=== PATIENT | female | born 1975 | race Caucasian/White ===

== ENCOUNTER 2016-07-24 17:46 | Emergency (ER) | payer BC ==
[~2016-07-24] VITALS: Ht 167.6 cm; Wt 72.6 kg
[~2016-07-24 17:46] MED LIST: ADDERALL20 MG PO; ANAPROX DS550 MG PO; ANTIVERT25 MG PO; BACTRIM DS 8001 TA1 PO; BIAXIN500 MG PO; CIPRO250 MG PO; CIPRO500 MG PO; CLARITIN10 MG PO; CORDROL20 MG PO; DIAZEPAM2 MG PO; EPIPEN 2-PAK1 MG/ML MR; FLEXERIL10 MG PO; LISINOPRIL10 M1 PO; LOPRESSOR25 MG PO; MACROBID100 M1 PO; MOTRIN800 MG PO; Motrin,Rufen800 MG PO; Orphenadrine C100 MG PO; PEPCID20 MG PO; PREDNISONE10 MG PO; PROVENTIL0.09 MG/AC IH; PYRIDIUM200 M1 PO; PYRIDIUM200 MG PO; ROBAXIN750 MG PO; SYNTHROID,LEV100 MCG PO; ULTRAM50 MG PO; VICODIN 5/500 505 MG PO; ZOFRAN ODT4 MG SL
[2016-07-24] MEDS ORDERED: PROTONIX40 MG/PACK PO (17:54)
[2016-07-24 18:26] LABS: BASO # 0.1 10*3/uL (0.0-0.1); BASO % 0.9 % (0.0-1.0); EOS # 0.7 10*3/uL (0.0-0.4); EOS % 8.9 % (1.0-4.0); HEMATOCRIT 36.6 % (37.0-47.0); HEMOGLOBIN 12.3 g/dl (12.0-16.0); LYMPH # 2.1 10*3/uL (1.3-4.4); LYMPH % 26.1 % (27.0-41.0); MEAN CELL VOLUME 94.3 fl (81.0-99.0); MEAN CORPUSCULAR HGB 31.7 pg (27.0-31.0); MEAN CORPUSCULAR HGB CONC 33.6 g/dl (33.0-37.0); MEAN PLATELET VOLUME 8.5 fl (9.6-12.3); MONO # 0.7 10*3/uL (0.1-1.0); MONO % 8.5 % (3.0-9.0); NEUT # 4.5 10*3/uL (2.3-7.9); NEUT % 55.4 % (47.0-73.0); PLATELET COUNT AUTOMATED 380 10*3/uL (130-400); RED BLOOD COUNT 3.88 10*6/uL (4.10-5.10); RED CELL DISTRI WIDTH 14.6 % (0-14.5); WHITE BLOOD COUNT 8.2 10*3/uL (4.8-10.8)
[2016-07-24 18:43] LABS: ALBUMIN 3.8 gm/dl (3.1-4.5); ALKALINE PHOSPHATASE 53 U/L (45-117); BILIRUBIN, TOTAL 0.3 mg/dl (0.2-1.0); BUN 12 mg/dl (7-24); CARBON DIOXIDE 24 mmol/L (21-32); CHLORIDE 106 mmol/L (98-107); EST GLOM FILT AFRICAN AMERICAN > 60 ml/min; GLUCOSE 84 mg/dL (65-99); MAGNESIUM 2.1 mg/dL (1.5-2.1); POTASSIUM 3.9 mmol/L (3.5-5.1); SGOT/AST 12 IU/L (3-35); SGPT/ALT 20 U/L (12-78); SODIUM 141 mmol/L (136-145); TOTAL PROTEIN 7.3 gm/dL (6.4-8.2)
[2016-07-24 18:53] LABS: C-REACTIVE PROTEIN < 0.29 MG/DL (0-0.3)
[2016-07-24 20:17] LABS: BILIRUBIN NEGATIVE (NEGATIVE); BLOOD 3+ (NEGATIVE); CLARITY CLEAR (CLEAR); COLOR YELLOW (YELLOW); GLUCOSE NEGATIVE (NEGATIVE); KETONE NEGATIVE (NEGATIVE); LEUKO ESTERASE NEGATIVE (NEGATIVE); NITRITE NEGATIVE (NEGATIVE); PH 6.5 (5.0-9.0); PROTEIN NEGATIVE (NEGATIVE); SPECIFIC GRAVITY <= 1.005 (1.005-1.030); UROBILINOGEN 0.2 E.U./dl (0.2-1.0)
[2016-07-24 20:31] LABS: BACTERIA 1+; URINE REFLEX COMMENT YES (NO)
[2016-07-24] MEDS ORDERED: ZOFRAN ODT4 MG SL (22:46)
[2016-07-24] MEDS ORDERED: BENTYL10 MG PO (22:46)
[2016-07-24] MEDS ORDERED: ULTRAM50 MG PO (22:46)
== END 2016-07-24 23:25 | disposition home or self-care (01) ==
LOC: ED 17:46
PROVIDERS: Emergency Medicine
DX: K80.50 Calculus of bile duct without cholangitis or cholecystitis without obstruction (principal); K29.00 Acute gastritis without bleeding; I10 Essential (primary) hypertension; F17.200 Nicotine dependence, unspecified, uncomplicated; Z88.0 Allergy status to penicillin; Z79.899 Other long term (current) drug therapy

== ENCOUNTER → 2016-07-25 | Outpatient (CLI) | payer BC ==
[~2016-07-25] MED LIST changes: +BENTYL10 MG PO; +PROTONIX40 MG/PACK PO
== END | disposition home or self-care (01) ==
LOC: US 17:43
DX: R10.13 Epigastric pain (principal)

== ENCOUNTER 2016-10-23 09:52 | Emergency (ER) | payer BC ==
[~2016-10-23] VITALS: Ht 167.6 cm; Wt 72.6 kg
[2016-10-23 10:24] LABS: BASO # 0.1 10*3/uL (0.0-0.1); BASO % 0.5 % (0.0-1.0); EOS # 0.3 10*3/uL (0.0-0.4); EOS % 1.4 % (1.0-4.0); HEMATOCRIT 40.5 % (37.0-47.0); HEMOGLOBIN 13.7 g/dl (12.0-16.0); IG # 0.1 10*3/uL (0.0-0.1); LYMPH # 1.7 10*3/uL (1.3-4.4); LYMPH % 8.7 % (27.0-41.0); MEAN CELL VOLUME 95.3 fl (81.0-99.0); MEAN CORPUSCULAR HGB 32.2 pg (27.0-31.0); MEAN CORPUSCULAR HGB CONC 33.8 g/dl (33.0-37.0); MEAN PLATELET VOLUME 8.2 fl (9.6-12.3); MONO # 0.9 10*3/uL (0.1-1.0); MONO % 4.4 % (3.0-9.0); NEUT # 16.8 10*3/uL (2.3-7.9); NEUT % 84.4 % (47.0-73.0); PLATELET COUNT AUTOMATED 497 10*3/uL (130-400); RED BLOOD COUNT 4.25 10*6/uL (4.10-5.10); RED CELL DISTRI WIDTH 12.8 % (0-14.5); WHITE BLOOD COUNT 19.9 10*3/uL (4.8-10.8)
[2016-10-23 10:32] LABS: PROTHROMBIN TIME 11.1 SECONDS (9.0-12.4)
[2016-10-23 10:45] LABS: ALBUMIN 3.9 gm/dl (3.1-4.5); ALKALINE PHOSPHATASE 75 U/L (45-117); BILIRUBIN, TOTAL 0.3 mg/dl (0.2-1.0); BUN 7 mg/dl (7-24); CARBON DIOXIDE 25 mmol/L (21-32); CHLORIDE 105 mmol/L (98-107); EST GLOM FILT AFRICAN AMERICAN > 60 ml/min; MAGNESIUM 1.9 mg/dL (1.5-2.1); POTASSIUM 3.3 mmol/L (3.5-5.1); SGOT/AST 12 IU/L (3-35); SGPT/ALT 18 U/L (12-78); SODIUM 142 mmol/L (136-145)
[2016-10-23 10:47] LABS: GLUCOSE 48 mg/dL (65-99); TROPONIN I < 0.015 ng/ml (<0.045)
[2016-10-23 12:44] LABS: BILIRUBIN NEGATIVE (NEGATIVE); BLOOD 1+ (NEGATIVE); CLARITY CLEAR (CLEAR); COLOR YELLOW (YELLOW); GLUCOSE NEGATIVE (NEGATIVE); KETONE NEGATIVE (NEGATIVE); LEUKO ESTERASE NEGATIVE (NEGATIVE); NITRITE NEGATIVE (NEGATIVE); PROTEIN NEGATIVE (NEGATIVE); UROBILINOGEN 0.2 E.U./dl (0.2-1.0)
[2016-10-23 12:52] LABS: BACTERIA 1+
[2016-10-23 12:53] LABS: URINE REFLEX COMMENT YES (NO)
== END 2016-10-23 13:24 | disposition home or self-care (01) ==
LOC: ED 09:52
PROVIDERS: Nurse Practitioner Family
DX: E16.2 Hypoglycemia, unspecified (principal); D72.829 Elevated white blood cell count, unspecified; I10 Essential (primary) hypertension; E03.9 Hypothyroidism, unspecified; F17.200 Nicotine dependence, unspecified, uncomplicated; Z88.0 Allergy status to penicillin; Z79.899 Other long term (current) drug therapy

== ENCOUNTER 2017-03-01 13:16 | Emergency (ER) | payer BC ==
[~2017-03-01] VITALS: Wt 72.6 kg
== END 2017-03-01 17:48 | disposition home or self-care (01) ==
LOC: ED 13:16
DX: S90.31XA Contusion of right foot, initial encounter (principal); F17.200 Nicotine dependence, unspecified, uncomplicated; Z88.0 Allergy status to penicillin

== ENCOUNTER 2017-03-22 23:07 | Inpatient (IN) | payer BC ==
[~2017-03-22] VITALS: Ht 170.2 cm; Wt 82.6 kg
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
[2017-03-22 23:10] VITALS: BP 145/115
[2017-03-22 23:11] VITALS: BP 145/115
[2017-03-22 23:20] VITALS: BP 144/97
[2017-03-22 23:27] LABS: BILIRUBIN NEGATIVE (NEGATIVE); BLOOD 2+ (NEGATIVE); CLARITY CLEAR (CLEAR); COLOR YELLOW (YELLOW); GLUCOSE NEGATIVE (NEGATIVE); KETONE NEGATIVE (NEGATIVE); LEUKO ESTERASE NEGATIVE (NEGATIVE); NITRITE NEGATIVE (NEGATIVE); PH 5.5 (5.0-9.0); SPECIFIC GRAVITY 1.025 (1.005-1.030); UROBILINOGEN 0.2 E.U./dl (0.2-1.0)
[2017-03-22 23:30] VITALS: BP 132/88
[2017-03-22 23:36] LABS: URINE AMPHETAMINES < 1000 (1000ng/ml); URINE BARBITURATES < 200 (200ng/ml); URINE BENZODIAZEPINES < 200 (200ng/ml); URINE CANNABINOIDS (THC) < 50 (50ng/ml); URINE COCAINE < 300 (300ng/ml); URINE METHADONE < 300 (300ng/ml); URINE OPIATES < 300 (300ng/ml)
[2017-03-22 23:37] LABS: URINE PHENCYCLIDINE < 25 (25ng/ml)
[2017-03-22 23:38] LABS: WBC 0-2 wbc/hpf (0-5)
[2017-03-22 23:40] VITALS: BP 127/83
--- NOTE | 2017-03-22 23:49 | NUR ---
SPOKE WITH [employer] [employer] REGARDING PATIENT INGESTING PILLS. INFORMATION IS BEING EMAILED TO NURSE TOE [employer] [facility]. DR KAT MADE AWARE OF INITIAL SIGNS AND SX
[2017-03-22 23:55] LABS: BASO # 0.1 10*3/uL (0.0-0.1); BASO % 1.2 % (0.0-1.0); EOS # 0.3 10*3/uL (0.0-0.4); HEMATOCRIT 44.2 % (37.0-47.0); HEMOGLOBIN 14.7 g/dl (12.0-16.0); LYMPH # 2.1 10*3/uL (1.3-4.4); LYMPH % 26.3 % (27.0-41.0); MEAN CELL VOLUME 96.9 fl (81.0-99.0); MEAN CORPUSCULAR HGB 32.2 pg (27.0-31.0); MEAN CORPUSCULAR HGB CONC 33.3 g/dl (33.0-37.0); MEAN PLATELET VOLUME 8.4 fl (9.6-12.3); MONO # 0.4 10*3/uL (0.1-1.0); MONO % 5.3 % (3.0-9.0); NEUT # 5.1 10*3/uL (2.3-7.9); NEUT % 62.8 % (47.0-73.0); PLATELET COUNT AUTOMATED 422 10*3/uL (130-400); RED BLOOD COUNT 4.56 10*6/uL (4.10-5.10); RED CELL DISTRI WIDTH 13.5 % (0-14.5); WHITE BLOOD COUNT 8.1 10*3/uL (4.8-10.8)
[2017-03-23] VITALS (9 sets, daily range): BP systolic 95–134; BP diastolic 55–91
--- NOTE | 2017-03-23 00:06 | NUR ---
PT LACTIC ACID 4.7. DR KAT NOTIFIED
[2017-03-23 00:14] LABS: ALBUMIN 4.2 gm/dl (3.1-4.5); ALKALINE PHOSPHATASE 76 U/L (45-117); BUN 8 mg/dl (7-24); CHLORIDE 113 mmol/L (98-107); CREATININE 0.81 mg/dL (0.55-1.02); SGOT/AST 24 IU/L (3-35); SGPT/ALT 25 U/L (12-78); SODIUM 146 mmol/L (136-145); TOTAL PROTEIN 8.2 gm/dL (6.4-8.2)
[2017-03-23 00:19] LABS: ACETAMINOPHEN (TYLENOL) < 2.0 ug/ml (10-30)
--- NOTE | 2017-03-23 01:04 | NUR ---
WHEN PERFORMING SUICIDE RISK ASSESSMENT, PT STATED THAT SHE DID NOT INTEND TO HARM OR KILL HERSELF. DENIES ANY SUICIDAL IDEATIONS AND EXPRESSED HER WISHES TO SIGN OUT AMA
--- NOTE | 2017-03-23 01:22 | NUR ---
REMOVED PT VO PER PT REQUEST. DR KAT AGREED.
--- NOTE | 2017-03-23 02:30 | NUR ---
A 41, admitted to ICCU, under the services of CHENG Chase DO with a diagnosis of NON-ACCIDENTAL DRUG OVERDOSE. Chief complaint is PATIENT OVERDOSED ON MULTIPLE MEDICATIONS. SEE TRAIGE ASSESSMENT. Patient arrived via stretcher from ER. Monitor applied. Initial assessment completed. Vital signs taken and recorded. CHENG CHASE DO notified of admission to the unit. Orders received. See assessment for past medical history, medications and allergies. Patient and/or family oriented to unit. [facility] ICCU visitation policy reviewed. Clothing/patient valuable form completed. JENNIFER JIN
--- NOTE | 2017-03-23 04:12 | NUR ---
MEDICATED WITH ZOFRAN IV FOR WATER EMESIS. [facility] PHONED IN FOR AN UPDATE.
[2017-03-23 04:38] LABS: ALBUMIN 4.1 gm/dl (3.1-4.5); CREATININE 1.24 mg/dL (0.55-1.02); FREE T4 0.82 ng/dl (0.76-1.46)
--- NOTE | 2017-03-23 04:53 | NUR ---
DR HAHN MADE AWARE OF LA OF 7.8.
[2017-03-23 05:21] LABS: CHOLESTEROL 205 mg/dL (<200); HDL CHOLESTEROL 61 mg/dl (40-60); LDL CHOLESTEROL 124 mg/dL (9-159); TRIGLYCERIDES 100 mg/dl (<150); VLDL CHOLESTEROL 20 mg/dL (6-40)
--- NOTE | 2017-03-23 08:00 | NUR ---
PATIENT IS RESTING COMFORTABLY IN BED. DENIES DISCOMFORT AT THIS TIME.
--- NOTE | 2017-03-23 08:17 | NUR ---
CONSULT CALLED TO [facility] DR DAVIS ASKED.
[2017-03-23 08:30] LABS: VITAMIN D, 25-HYDROXY 17.1 ng/mL (30-100)
--- NOTE | 2017-03-23 08:50 | NUR ---
SR GONZÁLES NOTIFIED OF PATIENT'S LACTIC ACID LEVEL.
--- NOTE | 2017-03-23 18:30 | NUR ---
POISON CONTROL CALLED UPDATED WITH LACTIC ACID LEVEL OF 1.0. NO SYMPTOMS. STATED THEY ARE SIGING OFF.
--- NOTE | 2017-03-23 20:54 | NUR ---
24 HR chart check completed.
[2017-03-24] VITALS: BP 106/58
[2017-03-24 04:00] VITALS: BP 112/70
[2017-03-24 04:35] LABS: BASO % 0.3 % (0.0-1.0); EOS # 0.1 10*3/uL (0.0-0.4); EOS % 1.1 % (1.0-4.0); LYMPH # 1.7 10*3/uL (1.3-4.4); LYMPH % 14.1 % (27.0-41.0); MEAN CELL VOLUME 95.8 fl (81.0-99.0); MEAN CORPUSCULAR HGB 32.5 pg (27.0-31.0); MEAN PLATELET VOLUME 8.5 fl (9.6-12.3); MONO # 1.1 10*3/uL (0.1-1.0); MONO % 8.7 % (3.0-9.0); NEUT # 9.2 10*3/uL (2.3-7.9); NEUT % 75.4 % (47.0-73.0); PLATELET COUNT AUTOMATED 335 10*3/uL (130-400); RED BLOOD COUNT 3.81 10*6/uL (4.10-5.10); RED CELL DISTRI WIDTH 13.9 % (0-14.5); WHITE BLOOD COUNT 12.3 10*3/uL (4.8-10.8)
[2017-03-24 04:36] LABS: HEMATOCRIT 36.5 % (37.0-47.0); HEMOGLOBIN 12.4 g/dl (12.0-16.0)
[2017-03-24 04:42] LABS: ALBUMIN 3.3 gm/dl (3.1-4.5); ALKALINE PHOSPHATASE 56 U/L (45-117); CHLORIDE 107 mmol/L (98-107); CREATININE 1.05 mg/dL (0.55-1.02); POTASSIUM 3.2 mmol/L (3.5-5.1); SGOT/AST 17 IU/L (3-35); SGPT/ALT 21 U/L (12-78); SODIUM 139 mmol/L (136-145); TOTAL PROTEIN 6.2 gm/dL (6.4-8.2)
[2017-03-24 04:43] LABS: BUN 19 mg/dl (7-24)
[2017-03-24 08:00] VITALS: BP 120/84
--- NOTE | 2017-03-24 11:19 | NUR ---
CALLED AND INFORMED HIM OF ORDER TO REEVALUATE. HE STATED THAT HE IS ALREADY OUT OF THE HOSPITAL. ALSO STATED THAT EVEN IF HE WAS HERE THAT HE IS NOT GOING TO CHANGE HIS DECISION DUE TO THE PATIENT BEING UPSET. NO ORDERS RECEIVED.
[2017-03-24 12:00] VITALS: BP 121/81
[2017-03-24 16:00] VITALS: BP 142/85
--- NOTE | 2017-03-24 18:01 | NUR ---
PATIENT MEDICATED WITH TYLENOL 975MG PO PER ONE TIME ORDER DUE TO PATIENT C/O HEADACHE AND NECK PAIN. WILL CONTINUE TO MONITOR.
[2017-03-24 20:00] VITALS: BP 137/88
--- NOTE | 2017-03-24 20:09 | NUR ---
PT. RESTING IN BED QUIETLY. REMORSEFUL FOR SUICIDE ATTEMPT, DENIES SUICIDAL IDEATION AT THIS TIME. IVF CONTINUE ORDERED VIA RAN, SITE ASYMPT. HEPLOCK IN YENNIFER ASYMPT. LUNGS CLEAR BILAT, PULSE OX 97% ON RA. ABDOMEN SOFT, NONDISTENDED AND NORMO. NO PERIPHERAL EDEMA NOTED. KNEE HIGH PETE HOSE ON BILAT. TALKED WITH ALEXANDER SÁNCHEZ AT 193 REGARDING POSSIBLE TRANSFER OF PATIENT THIS EVENING OR IN AM TO INPATIENT PSYCH. CONFIRMED WITH DR. ADAIR AT 193 THAT PATIENT WAS NOT TO BE TRANSFERRED TONIGHT. CALLED ALEXANDER SÁNCHEZ BACK AT 1941 AND RELAYED MESSAGE. ALEXANDER STATED SHE WOULD BE IN TO SEE PT IN THE AM. BLACK BERNSTEIN RN
[2017-03-25] VITALS: BP 135/98
[2017-03-25 04:00] VITALS: BP 144/98
[2017-03-25 05:00] LABS: BASO # 0.1 10*3/uL (0.0-0.1); BASO % 0.6 % (0.0-1.0); EOS # 0.4 10*3/uL (0.0-0.4); EOS % 3.4 % (1.0-4.0); HEMATOCRIT 38.2 % (37.0-47.0); HEMOGLOBIN 12.9 g/dl (12.0-16.0); LYMPH # 1.6 10*3/uL (1.3-4.4); LYMPH % 14.5 % (27.0-41.0); MEAN CORPUSCULAR HGB 32.4 pg (27.0-31.0); MEAN CORPUSCULAR HGB CONC 33.8 g/dl (33.0-37.0); MEAN PLATELET VOLUME 8.6 fl (9.6-12.3); MONO # 1.1 10*3/uL (0.1-1.0); MONO % 9.8 % (3.0-9.0); NEUT # 7.7 10*3/uL (2.3-7.9); NEUT % 71.3 % (47.0-73.0); PLATELET COUNT AUTOMATED 344 10*3/uL (130-400); RED BLOOD COUNT 3.98 10*6/uL (4.10-5.10); RED CELL DISTRI WIDTH 13.5 % (0-14.5); WHITE BLOOD COUNT 10.7 10*3/uL (4.8-10.8)
[2017-03-25 05:08] LABS: ALBUMIN 3.5 gm/dl (3.1-4.5); ALKALINE PHOSPHATASE 60 U/L (45-117); BUN 9 mg/dl (7-24); CHLORIDE 105 mmol/L (98-107); CREATININE 0.63 mg/dL (0.55-1.02); POTASSIUM 3.7 mmol/L (3.5-5.1); SGOT/AST 9 IU/L (3-35); SGPT/ALT 21 U/L (12-78); SODIUM 138 mmol/L (136-145); TOTAL PROTEIN 6.9 gm/dL (6.4-8.2)
[2017-03-25 08:00] VITALS: BP 142/97
--- NOTE | 2017-03-25 08:35 | NUR ---
received a call last night about client and needing to find and inpatient bed, i was going to look last night but per the doctor they wanted to wait until this am so i will see the client and then proceed.
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
--- NOTE | 2017-03-25 09:42 | NUR ---
ALEXANDER SÁNCHEZ IN TO SEE PT EARLIER. DR OCHOA NOTIFIED OF CONSULT AND DR DAVIS'S ORDERS. DR OCHOA WILL SEE PT IN AM. DR GONZÁLES IN TO SEE PT AND HAS BEEN UPDATED ON PLAN OF CARE.
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
--- NOTE | 2017-03-25 11:40 | NUR ---
PT STATES RELIEF OF PAIN WITH EARLIER TYLENOL.
[2017-03-25 12:00] VITALS: BP 128/80
[2017-03-25 16:00] VITALS: BP 120/92
[2017-03-25 20:00] VITALS: BP 124/81
--- NOTE | 2017-03-25 20:16 | NUR ---
PT. RESTING IN BED. HEP LOCK IN YENNIFER AND RAN ASYMPT. LUNGS DIMINISHED BUT CLEAR, PULSE OX 97% ON RA. ABDOMEN SOFT, NONDISTENDED AND NORMO. NO PERIPHERAL EDEMA NOTED. RESP. EASY AND REG, NO DISTRESS. PT. DENIES SUICIDAL IDEATION AT THIS TIME. BLACK BERNSTEIN RN
[2017-03-26] VITALS: BP 132/89
--- NOTE | 2017-03-26 01:05 | NUR ---
24 HR chart check completed.
[2017-03-26 04:00] VITALS: BP 122/82
[2017-03-26 05:50] LABS: BASO # 0.1 10*3/uL (0.0-0.1); BASO % 0.8 % (0.0-1.0); EOS # 0.5 10*3/uL (0.0-0.4); HEMATOCRIT 37.8 % (37.0-47.0); HEMOGLOBIN 12.5 g/dl (12.0-16.0); LYMPH # 1.2 10*3/uL (1.3-4.4); LYMPH % 16.3 % (27.0-41.0); MEAN CELL VOLUME 96.4 fl (81.0-99.0); MEAN CORPUSCULAR HGB 31.9 pg (27.0-31.0); MEAN CORPUSCULAR HGB CONC 33.1 g/dl (33.0-37.0); MEAN PLATELET VOLUME 8.7 fl (9.6-12.3); MONO # 0.8 10*3/uL (0.1-1.0); MONO % 10.5 % (3.0-9.0); PLATELET COUNT AUTOMATED 311 10*3/uL (130-400); RED BLOOD COUNT 3.92 10*6/uL (4.10-5.10); RED CELL DISTRI WIDTH 13.6 % (0-14.5); WHITE BLOOD COUNT 7.5 10*3/uL (4.8-10.8)
--- NOTE | 2017-03-26 07:54 | NUR ---
24 HR chart check completed.
[2017-03-26 08:00] VITALS: BP 128/88
--- NOTE | 2017-03-26 08:12 | NUR ---
PT RESTING IN BED WITH NO C/O ANY. VITALS STABLE. DENIES ANY SUICIDAL IDEATION AT THIS TIME. AWAITING DR OCHOA.
[2017-03-26] MEDS ORDERED: BUDEPRION XL150 MG PO (08:59)
--- NOTE | 2017-03-26 11:07 | NUR ---
PT DC HOME. AWAITING RIDE AT THIS TIME.
== END 2017-03-26 15:23 | disposition home or self-care (01) | DRG 917 ==
LOC: ED 23:07 → ICCU 03-23 01:39 → EDHOLD 03-23 01:39 → ICCU 03-23 01:50
PROVIDERS: Emergency Medicine Emergency Medical Services; Hospitalist; Internal Medicine; ADMIT Internal Medicine
DX: T46.4X2A Poisoning by angiotensin-converting-enzyme inhibitors, intentional self-harm, initial encounter (principal); N17.0 Acute kidney failure with tubular necrosis; R40.20 Unspecified coma; E87.0 Hyperosmolality and hypernatremia; E87.2 Acidosis; F33.9 Major depressive disorder, recurrent, unspecified; T14.91XA Suicide attempt, initial encounter; F10.920 Alcohol use, unspecified with intoxication, uncomplicated; D72.810 Lymphocytopenia; T46.6X2A Poisoning by antihyperlipidemic and antiarteriosclerotic drugs, intentional self-harm, initial encounter; T38.3X2A Poisoning by insulin and oral hypoglycemic [antidiabetic] drugs, intentional self-harm, initial encounter; I10 Essential (primary) hypertension; E03.9 Hypothyroidism, unspecified; F17.200 Nicotine dependence, unspecified, uncomplicated; R31.9 Hematuria, unspecified; R00.0 Tachycardia, unspecified; R06.82 Tachypnea, not elsewhere classified; E87.8 Other disorders of electrolyte and fluid balance, not elsewhere classified; D47.3 Essential (hemorrhagic) thrombocythemia; E78.00 Pure hypercholesterolemia, unspecified; Z79.899 Other long term (current) drug therapy; Z88.0 Allergy status to penicillin; Z98.51 Tubal ligation status; Z82.49 Family history of ischemic heart disease and other diseases of the circulatory system; X83.8XXA Intentional self-harm by other specified means, initial encounter; Y92.89 Other specified places as the place of occurrence of the external cause

== ENCOUNTER 2017-09-09 08:27 | Inpatient (IN) | payer BC ==
[~2017-09-09] VITALS: Ht 170.1 cm; Wt 83.9 kg
[2017-09-09 08:27] VITALS: BP 153/112
[~2017-09-09 08:27] MED LIST changes: +BUDEPRION XL150 MG PO
[2017-09-09 08:50] LABS: BASO # 0.1 10*3/uL (0.0-0.1); BASO % 0.7 % (0.0-1.0); EOS # 0.4 10*3/uL (0.0-0.4); EOS % 3.5 % (1.0-4.0); HEMATOCRIT 43.7 % (37.0-47.0); HEMOGLOBIN 14.7 g/dl (12.0-16.0); LYMPH # 1.7 10*3/uL (1.3-4.4); LYMPH % 15.8 % (27.0-41.0); MEAN CELL VOLUME 95.4 fl (81.0-99.0); MEAN CORPUSCULAR HGB 32.1 pg (27.0-31.0); MEAN CORPUSCULAR HGB CONC 33.6 g/dl (33.0-37.0); MEAN PLATELET VOLUME 8.9 fl (9.6-12.3); MONO # 0.6 10*3/uL (0.1-1.0); MONO % 5.5 % (3.0-9.0); NEUT # 8.1 10*3/uL (2.3-7.9); NEUT % 74.2 % (47.0-73.0); PLATELET COUNT AUTOMATED 419 10*3/uL (130-400); RED BLOOD COUNT 4.58 10*6/uL (4.10-5.10); RED CELL DISTRI WIDTH 13.5 % (0-14.5)
[2017-09-09 09:24] VITALS: BP 150/88
[2017-09-09 09:30] LABS: ACT PARTIAL THROMBO TIME 26.6 SECONDS (20.8-31.5)
[2017-09-09 09:31] LABS: ALBUMIN 4.2 gm/dl (3.1-4.5); ALKALINE PHOSPHATASE 62 U/L (45-117); BUN 8 mg/dl (7-24); CHLORIDE 104 mmol/L (98-107); CREATININE 0.69 mg/dL (0.55-1.02); POTASSIUM 3.5 mmol/L (3.5-5.1); SGOT/AST 16 IU/L (3-35); SGPT/ALT 19 U/L (12-78); SODIUM 138 mmol/L (136-145); TOTAL PROTEIN 7.9 gm/dL (6.4-8.2)
[2017-09-09 09:32] LABS: TROPONIN I < 0.015 ng/ml (<0.045)
[2017-09-09 10:00] VITALS: BP 149/96
[2017-09-09 12:00] VITALS: BP 127/77
[2017-09-09 16:00] VITALS: BP 152/97
[2017-09-09 20:00] VITALS: BP 114/67
[2017-09-10] VITALS: BP 106/66
[2017-09-10 06:31] LABS: BASO # 0.1 10*3/uL (0.0-0.1); BASO % 0.8 % (0.0-1.0); EOS # 0.7 10*3/uL (0.0-0.4); EOS % 8.3 % (1.0-4.0); HEMATOCRIT 46.9 % (37.0-47.0); HEMOGLOBIN 15.1 g/dl (12.0-16.0); LYMPH # 2.5 10*3/uL (1.3-4.4); LYMPH % 30.9 % (27.0-41.0); MEAN CORPUSCULAR HGB 31.9 pg (27.0-31.0); MEAN CORPUSCULAR HGB CONC 32.2 g/dl (33.0-37.0); MEAN PLATELET VOLUME 8.6 fl (9.6-12.3); MONO # 0.5 10*3/uL (0.1-1.0); MONO % 5.9 % (3.0-9.0); NEUT # 4.3 10*3/uL (2.3-7.9); NEUT % 53.8 % (47.0-73.0); PLATELET COUNT AUTOMATED 389 10*3/uL (130-400); RED BLOOD COUNT 4.73 10*6/uL (4.10-5.10); RED CELL DISTRI WIDTH 13.6 % (0-14.5); WHITE BLOOD COUNT 7.9 10*3/uL (4.8-10.8)
[2017-09-10 06:42] LABS: MEAN CELL VOLUME 99.2 fl (81.0-99.0)
[2017-09-10 06:53] LABS: ACT PARTIAL THROMBO TIME 26.6 SECONDS (20.8-31.5); INTERNATIONAL NORM RATIO 0.9 (2.0-3.5)
[2017-09-10 07:10] LABS: BUN 13 mg/dl (7-24); CHLORIDE 100 mmol/L (98-107); POTASSIUM 3.6 mmol/L (3.5-5.1); SODIUM 137 mmol/L (136-145)
[2017-09-10 07:41] LABS: ALKALINE PHOSPHATASE 66 U/L (45-117); CHOLESTEROL 279 mg/dL (<200); CREATININE 0.89 mg/dL (0.55-1.02); FREE T4 0.51 ng/dl (0.76-1.46); HDL CHOLESTEROL 64 mg/dl (40-60); LDL CHOLESTEROL 171 mg/dL (9-159); PHOSPHOROUS 3.5 mg/dL (2.5-4.9); SGOT/AST 13 IU/L (3-35); SGPT/ALT 21 U/L (12-78); TOTAL PROTEIN 8.4 gm/dL (6.4-8.2); TRIGLYCERIDES 221 mg/dl (<150); VLDL CHOLESTEROL 44 mg/dL (6-40)
[2017-09-10 08:00] VITALS: BP 130/80
[2017-09-10 08:01] LABS: VITAMIN D, 25-HYDROXY 16.9 ng/mL (30-100)
[2017-09-10 11:02] LABS: BILIRUBIN NEGATIVE (NEGATIVE); BLOOD TRACE-LYSED (NEGATIVE); CLARITY SL CLOUDY (CLEAR); COLOR YELLOW (YELLOW); GLUCOSE NEGATIVE (NEGATIVE); KETONE NEGATIVE (NEGATIVE); LEUKO ESTERASE 1+ (NEGATIVE); NITRITE NEGATIVE (NEGATIVE); PH 6.5 (5.0-9.0); SPECIFIC GRAVITY 1.015 (1.005-1.030); UROBILINOGEN 0.2 E.U./dl (0.2-1.0)
[2017-09-10 11:11] LABS: BACTERIA 2+; EPITHELIAL CELLS 31-40; WBC 21-30 wbc/hpf (0-5)
[2017-09-10] MEDS ORDERED: VITAMIN D-32000 UNIT PO (11:45)
[2017-09-10] MEDS ORDERED: ATORVASTATIN CA40 M1 PO (11:45)
== END 2017-09-10 12:50 | disposition home or self-care (01) | DRG 313 ==
LOC: ED 08:27 → EDHOLD 08:58 → 4E 08:58
PROVIDERS: Emergency Medicine; Family Medicine; Internal Medicine
PROC: 4A02XM4 Measurement of Cardiac Total Activity, External Approach (ICD-10-PCS; principal; 2017-09-10)
DX: R07.89 Other chest pain (principal); E83.41 Hypermagnesemia; E05.00 Thyrotoxicosis with diffuse goiter without thyrotoxic crisis or storm; D72.810 Lymphocytopenia; D47.3 Essential (hemorrhagic) thrombocythemia; E66.3 Overweight; I34.1 Nonrheumatic mitral (valve) prolapse; E89.0 Postprocedural hypothyroidism; E78.00 Pure hypercholesterolemia, unspecified; Z80.0 Family history of malignant neoplasm of digestive organs; Z80.8 Family history of malignant neoplasm of other organs or systems; Z86.79 Personal history of other diseases of the circulatory system; Z82.49 Family history of ischemic heart disease and other diseases of the circulatory system; Z88.0 Allergy status to penicillin

== ENCOUNTER → 2018-04-01 | Outpatient (CLI) | payer BC ==
[~2018-04-01] MED LIST changes: +ATORVASTATIN CA40 M1 PO; +VITAMIN D-32000 UNIT PO
[2018-04-01 10:36] LABS: BASO # 0.1 10*3/uL (0.0-0.1); BASO % 0.7 % (0.0-1.0); EOS # 0.5 10*3/uL (0.0-0.4); EOS % 5.3 % (1.0-4.0); HEMATOCRIT 39.6 % (37.0-47.0); LYMPH # 1.4 10*3/uL (1.3-4.4); LYMPH % 16.2 % (27.0-41.0); MEAN CELL VOLUME 96.6 fl (81.0-99.0); MEAN CORPUSCULAR HGB 31.7 pg (27.0-31.0); MEAN CORPUSCULAR HGB CONC 32.8 g/dl (33.0-37.0); MEAN PLATELET VOLUME 8.6 fl (9.6-12.3); MONO # 0.5 10*3/uL (0.1-1.0); MONO % 5.5 % (3.0-9.0); NEUT # 6.1 10*3/uL (2.3-7.9); NEUT % 71.9 % (47.0-73.0); PLATELET COUNT AUTOMATED 351 10*3/uL (130-400); RED CELL DISTRI WIDTH 13.8 % (0-14.5); WHITE BLOOD COUNT 8.4 10*3/uL (4.8-10.8)
[2018-04-01 11:05] LABS: ALKALINE PHOSPHATASE 63 U/L (45-117); BUN 8 mg/dl (7-24); CHLORIDE 106 mmol/L (98-107); CHOLESTEROL 229 mg/dL (<200); POTASSIUM 4.2 mmol/L (3.5-5.1); SGOT/AST 16 IU/L (3-35); SGPT/ALT 23 U/L (12-78); SODIUM 138 mmol/L (136-145); TOTAL PROTEIN 7.7 gm/dL (6.4-8.2); TRIGLYCERIDES 197 mg/dl (<150); VLDL CHOLESTEROL 39 mg/dL (6-40)
[2018-04-01 11:14] LABS: HDL CHOLESTEROL 60 mg/dl (40-60); LDL CHOLESTEROL 130 mg/dL (9-159)
[2018-04-01 11:27] LABS: FREE T4 0.48 ng/dl (0.76-1.46)
[2018-04-01 15:32] LABS: VITAMIN D, 25-HYDROXY 22.8 ng/mL (30-100)
== END | disposition home or self-care (01) ==
LOC: RESCLI 01:05
PROVIDERS: Internal Medicine
DX: E78.2 Mixed hyperlipidemia (principal); E05.00 Thyrotoxicosis with diffuse goiter without thyrotoxic crisis or storm; E89.0 Postprocedural hypothyroidism; K21.9 Gastro-esophageal reflux disease without esophagitis; E55.9 Vitamin D deficiency, unspecified; I10 Essential (primary) hypertension; F17.200 Nicotine dependence, unspecified, uncomplicated; Z79.899 Other long term (current) drug therapy; Z88.8 Allergy status to other drugs, medicaments and biological substances

== ENCOUNTER → 2018-11-27 | Outpatient (CLI) | payer BC | END | disposition home or self-care (01) | LOC: RESCLI 13:26 | DX: E78.5 Hyperlipidemia, unspecified (principal); K21.9 Gastro-esophageal reflux disease without esophagitis; E89.0 Postprocedural hypothyroidism; I10 Essential (primary) hypertension; F17.200 Nicotine dependence, unspecified, uncomplicated; Z79.899 Other long term (current) drug therapy; Z91.14 Patient's other noncompliance with medication regimen ==

== ENCOUNTER → 2018-12-04 | Outpatient (CLI) | payer BC | END | disposition home or self-care (01) | LOC: RESCLI 01:19 | DX: E05.00 Thyrotoxicosis with diffuse goiter without thyrotoxic crisis or storm (principal); E89.0 Postprocedural hypothyroidism; K21.9 Gastro-esophageal reflux disease without esophagitis; E55.9 Vitamin D deficiency, unspecified; E78.2 Mixed hyperlipidemia; E66.09 Other obesity due to excess calories; I10 Essential (primary) hypertension; F17.210 Nicotine dependence, cigarettes, uncomplicated; Z79.899 Other long term (current) drug therapy ==

== ENCOUNTER 2019-07-21 07:34 | Emergency (ER) | payer BC ==
[~2019-07-21] VITALS: Ht 170.1 cm; Wt 81.6 kg
== END 2019-07-21 09:36 | disposition home or self-care (01) ==
LOC: ED 07:34
DX: J06.9 Acute upper respiratory infection, unspecified (principal); E78.00 Pure hypercholesterolemia, unspecified; E03.9 Hypothyroidism, unspecified; F17.200 Nicotine dependence, unspecified, uncomplicated; Z88.0 Allergy status to penicillin; Z79.899 Other long term (current) drug therapy; Z98.51 Tubal ligation status

== ENCOUNTER → 2019-07-29 | Outpatient (CLI) | payer BC | END | disposition home or self-care (01) | LOC: RESCLI 09:23 → LAB 09:23 | DX: R05 Cough (principal); R50.9 Fever, unspecified; Z20.828 Contact with and (suspected) exposure to other viral communicable diseases ==

== ENCOUNTER 2019-08-19 10:43 | Emergency (ER) | payer BC ==
[~2019-08-19] VITALS: Ht 172.7 cm; Wt 81.6 kg
[2019-08-19 11:25] LABS: BASO # 0.1 10*3/uL (0.0-0.1); BASO % 0.9 % (0.0-1.0); EOS # 0.4 10*3/uL (0.0-0.4); EOS % 3.3 % (1.0-4.0); HEMATOCRIT 39.6 % (37.0-47.0); LYMPH # 2.3 10*3/uL (1.3-4.4); LYMPH % 20.4 % (27.0-41.0); MEAN CELL VOLUME 96.6 fl (81.0-99.0); MEAN CORPUSCULAR HGB 32.4 pg (27.0-31.0); MEAN CORPUSCULAR HGB CONC 33.6 g/dl (33.0-37.0); MEAN PLATELET VOLUME 8.4 fl (9.6-12.3); MONO # 0.7 10*3/uL (0.1-1.0); NEUT # 7.8 10*3/uL (2.3-7.9); PLATELET COUNT AUTOMATED 359 10*3/uL (130-400); RED CELL DISTRI WIDTH 13.6 % (0-14.5); WHITE BLOOD COUNT 11.3 10*3/uL (4.8-10.8)
[2019-08-19 11:40] LABS: ALBUMIN 3.8 gm/dl (3.1-4.5); ALKALINE PHOSPHATASE 61 U/L (45-117); BUN 13 mg/dl (7-24); CHLORIDE 106 mmol/L (98-107); CREATININE 1.11 mg/dL (0.55-1.02); POTASSIUM 3.9 mmol/L (3.5-5.1); SGOT/AST 22 IU/L (3-35); SGPT/ALT 33 U/L (12-78); SODIUM 136 mmol/L (136-145); TOTAL PROTEIN 7.9 gm/dL (6.4-8.2)
[2019-08-19 12:07] LABS: BILIRUBIN NEGATIVE (NEGATIVE); CLARITY SL CLOUDY (CLEAR); COLOR YELLOW (YELLOW); GLUCOSE NEGATIVE (NEGATIVE); KETONE NEGATIVE (NEGATIVE)
[2019-08-19 12:08] LABS: BLOOD TRACE-INTACT (NEGATIVE); LEUKO ESTERASE NEGATIVE (NEGATIVE); NITRITE NEGATIVE (NEGATIVE); PH 7.5 (5.0-9.0); UROBILINOGEN 0.2 E.U./dl (0.2-1.0)
[2019-08-19 12:12] LABS: BACTERIA 1+; RBC 21-30 rbc/hpf (0-2)
== END 2019-08-19 14:25 | disposition home or self-care (01) ==
LOC: ED 10:43
PROVIDERS: Emergency Medicine
DX: R10.30 Lower abdominal pain, unspecified (principal); M54.5 Low back pain; R50.9 Fever, unspecified; Z88.0 Allergy status to penicillin; Z79.899 Other long term (current) drug therapy

== ENCOUNTER → 2019-08-25 | Outpatient (CLI) | payer BC ==
[2019-08-25 16:07] LABS: BASO # 0.1 10*3/uL (0.0-0.1); BASO % 0.4 % (0.0-1.0); EOS # 0.5 10*3/uL (0.0-0.4); EOS % 3.9 % (1.0-4.0); HEMATOCRIT 40.3 % (37.0-47.0); LYMPH # 2.4 10*3/uL (1.3-4.4); LYMPH % 21.2 % (27.0-41.0); MEAN CELL VOLUME 96.6 fl (81.0-99.0); MEAN CORPUSCULAR HGB 32.6 pg (27.0-31.0); MEAN CORPUSCULAR HGB CONC 33.7 g/dl (33.0-37.0); MEAN PLATELET VOLUME 8.5 fl (9.6-12.3); MONO # 0.7 10*3/uL (0.1-1.0); MONO % 6.1 % (3.0-9.0); NEUT # 7.8 10*3/uL (2.3-7.9); NEUT % 68.1 % (47.0-73.0); PLATELET COUNT AUTOMATED 384 10*3/uL (130-400); RED BLOOD COUNT 4.17 10*6/uL (4.10-5.10); RED CELL DISTRI WIDTH 13.4 % (0-14.5); WHITE BLOOD COUNT 11.4 10*3/uL (4.8-10.8)
[2019-08-25 16:28] LABS: ALBUMIN 3.8 gm/dl (3.1-4.5); ALKALINE PHOSPHATASE 66 U/L (45-117); BUN 11 mg/dl (7-24); CHLORIDE 104 mmol/L (98-107); CREATININE 0.82 mg/dL (0.55-1.02); FREE T4 0.98 ng/dl (0.76-1.46); POTASSIUM 3.6 mmol/L (3.5-5.1); SGOT/AST 15 IU/L (3-35); SGPT/ALT 30 U/L (12-78); SODIUM 137 mmol/L (136-145); TOTAL PROTEIN 7.8 gm/dL (6.4-8.2)
== END | disposition home or self-care (01) ==
LOC: LAB 15:29
PROVIDERS: Family Medicine
DX: K21.9 Gastro-esophageal reflux disease without esophagitis (principal); I10 Essential (primary) hypertension; E89.0 Postprocedural hypothyroidism; R68.89 Other general symptoms and signs; R50.9 Fever, unspecified; R51 Headache; J02.9 Acute pharyngitis, unspecified

== ENCOUNTER → 2019-08-26 | Outpatient (CLI) | payer BC ==
[2019-08-29 03:02] LABS: ADENOVIRUS Negative (Negative); INFLUENZA A Negative (Negative); INFLUENZA B Negative (Negative); METAPNEUMOVIRUS Negative (Negative); PARAINFLUENZA 1 Negative (Negative); PARAINFLUENZA 2 Negative (Negative); PARAINFLUENZA 3 Negative (Negative); RHINOVIRUS Negative (Negative); RSV A Negative (Negative); RSV B Negative (Negative)
== END ==
LOC: LAB 09:41
PROVIDERS: Family Medicine
DX: R68.89 Other general symptoms and signs (principal); R50.9 Fever, unspecified; J02.9 Acute pharyngitis, unspecified

== ENCOUNTER → 2019-12-16 | Outpatient (CLI) | payer BC | END | disposition home or self-care (01) | LOC: RESCLI 01:22 | DX: E89.0 Postprocedural hypothyroidism (principal); M25.60 Stiffness of unspecified joint, not elsewhere classified; M79.10 Myalgia, unspecified site; D47.3 Essential (hemorrhagic) thrombocythemia; D72.829 Elevated white blood cell count, unspecified; E78.2 Mixed hyperlipidemia; R53.82 Chronic fatigue, unspecified; E55.9 Vitamin D deficiency, unspecified; E78.5 Hyperlipidemia, unspecified; I10 Essential (primary) hypertension; Z79.899 Other long term (current) drug therapy; Z88.0 Allergy status to penicillin; Z98.51 Tubal ligation status; F17.200 Nicotine dependence, unspecified, uncomplicated ==

== ENCOUNTER → 2020-01-27 | Outpatient (CLI) | payer BC | END | disposition home or self-care (01) | LOC: RESCLI 03:24 | PROVIDERS: ATTEND Internal Medicine Nephrology | DX: M25.541 Pain in joints of right hand (principal); M25.542 Pain in joints of left hand; E78.5 Hyperlipidemia, unspecified; E89.0 Postprocedural hypothyroidism; I10 Essential (primary) hypertension; J01.90 Acute sinusitis, unspecified; K21.9 Gastro-esophageal reflux disease without esophagitis; E55.9 Vitamin D deficiency, unspecified; Z79.899 Other long term (current) drug therapy; Z72.0 Tobacco use; Z98.51 Tubal ligation status; Z88.0 Allergy status to penicillin ==

== ENCOUNTER → 2020-04-10 | Outpatient (CLI) | payer BC | END | disposition home or self-care (01) | LOC: COVID19 08:59 | PROVIDERS: ATTEND Internal Medicine | DX: U07.1 COVID-19 (principal) ==

== ENCOUNTER → 2021-06-19 | Outpatient (CLI) | payer SELFPAY | END | disposition home or self-care (01) | LOC: RESCLI 01:22 | PROVIDERS: ATTEND Internal Medicine Nephrology | DX: K21.9 Gastro-esophageal reflux disease without esophagitis (principal); I10 Essential (primary) hypertension; E89.0 Postprocedural hypothyroidism; E78.5 Hyperlipidemia, unspecified; Z79.899 Other long term (current) drug therapy; Z88.0 Allergy status to penicillin; Z88.8 Allergy status to other drugs, medicaments and biological substances; Z87.891 Personal history of nicotine dependence; Z98.890 Other specified postprocedural states ==

== ENCOUNTER 2022-07-14 10:17 | Emergency (ER) | payer OTHER ==
[~2022-07-14] VITALS: Ht 170.1 cm; Wt 86.2 kg
[2022-07-14] MEDS ORDERED: MELOXICAM15 MG PO (11:14)
== END 2022-07-14 11:27 | disposition home or self-care (01) ==
LOC: ED 10:17
DX: S93.402A Sprain of unspecified ligament of left ankle, initial encounter (principal); Z88.0 Allergy status to penicillin; Z98.51 Tubal ligation status; F17.200 Nicotine dependence, unspecified, uncomplicated; X50.1XXA Overexertion from prolonged static or awkward postures, initial encounter; Y93.01 Activity, walking, marching and hiking; Y92.89 Other specified places as the place of occurrence of the external cause; Y99.8 Other external cause status

== ENCOUNTER → 2022-11-08 | Outpatient (CLI) | payer OTHER ==
[~2022-11-08] MED LIST changes: +MELOXICAM15 MG PO
== END | disposition home or self-care (01) ==
LOC: RESCLI 04:26
PROVIDERS: ATTEND Internal Medicine
DX: R53.83 Other fatigue (principal); E03.9 Hypothyroidism, unspecified; Z12.31 Encounter for screening mammogram for malignant neoplasm of breast; Z12.11 Encounter for screening for malignant neoplasm of colon; E78.5 Hyperlipidemia, unspecified; R91.1 Solitary pulmonary nodule; F17.210 Nicotine dependence, cigarettes, uncomplicated; Z98.890 Other specified postprocedural states; Z79.899 Other long term (current) drug therapy

== ENCOUNTER 2024-04-17 12:12 | Emergency (ER) | payer OTHER ==
[~2024-04-17] VITALS: Ht 170.1 cm; Wt 90.7 kg
[2024-04-17] MEDS ORDERED: HYDROCHLOROTHIA25 M1 PO (12:37)
[2024-04-17] MEDS ORDERED: AMLODIPINE BESYL5 MG PO ×3 (12:37→16:04)
[2024-04-17 13:05] LABS: BASO # 0.1 10*3/uL (0.0-0.1); BASO % 0.6 % (0.0-1.0); EOS # 0.3 10*3/uL (0.0-0.4); EOS % 4.3 % (1.0-4.0); HEMATOCRIT 39.9 % (37.0-47.0); MEAN CELL VOLUME 93.4 fl (81.0-99.0); MEAN CORPUSCULAR HGB 30.9 pg (27.0-31.0); MEAN CORPUSCULAR HGB CONC 33.1 g/dl (33.0-37.0); MEAN PLATELET VOLUME 8.1 fl (9.6-12.3); MONO # 0.5 10*3/uL (0.1-1.0); MONO % 6.2 % (3.0-9.0); NEUT # 5.2 10*3/uL (2.3-7.9); PLATELET COUNT AUTOMATED 387 10*3/uL (130-400); RED BLOOD COUNT 4.27 10*6/uL (4.10-5.10); WHITE BLOOD COUNT 7.7 10*3/uL (4.8-10.8)
[2024-04-17 13:29] LABS: BUN 8 mg/dl (9-23); CHLORIDE 108 mmol/L (98-107); POTASSIUM 3.6 mmol/L (3.4-5.1)
[2024-04-17] MEDS ORDERED: Ondansetron Hydrochloride 4 MG/2 ML VIAL IV ONE (14:00)
[2024-04-17] MEDS ORDERED: HYDR25T PO ×2 (15:46→16:04)
== END 2024-04-17 15:54 | disposition home or self-care (01) ==
LOC: ED 12:12
DX: I10 Essential (primary) hypertension (principal); Z20.822 Contact with and (suspected) exposure to COVID-19; B34.9 Viral infection, unspecified; F17.200 Nicotine dependence, unspecified, uncomplicated; Z76.0 Encounter for issue of repeat prescription; Z88.0 Allergy status to penicillin; Z98.51 Tubal ligation status

== ENCOUNTER 2024-10-09 14:03 | Emergency (ER) | payer OTHER ==
[~2024-10-09] VITALS: Ht 170.1 cm; Wt 86.2 kg
[~2024-10-09 14:03] MED LIST changes: +AMLODIPINE BESYL5 MG PO; +HYDR25T PO; +HYDROCHLOROTHIA25 M1 PO
[2024-10-09 15:41] LABS: BASO # 0.1 10*3/uL (0.0-0.1); BASO % 0.7 % (0.0-1.0); EOS # 0.2 10*3/uL (0.0-0.4); EOS % 2.8 % (1.0-4.0); HEMATOCRIT 37.6 % (37.0-47.0); MEAN CELL VOLUME 97.2 fl (81.0-99.0); MEAN CORPUSCULAR HGB 32.6 pg (27.0-31.0); MEAN CORPUSCULAR HGB CONC 33.5 g/dl (33.0-37.0); MEAN PLATELET VOLUME 8.3 fl (9.6-12.3); MONO # 0.5 10*3/uL (0.1-1.0); MONO % 6.4 % (3.0-9.0); NEUT # 4.9 10*3/uL (2.3-7.9); NEUT % 64.4 % (47.0-73.0); PLATELET COUNT AUTOMATED 333 10*3/uL (130-400); RED BLOOD COUNT 3.87 10*6/uL (4.10-5.10); RED CELL DISTRI WIDTH 13.5 % (0-14.5); WHITE BLOOD COUNT 7.6 10*3/uL (4.8-10.8)
[2024-10-09 16:05] LABS: BUN 10 mg/dl (9-23); CHLORIDE 108 mmol/L (98-107); POTASSIUM 3.8 mmol/L (3.4-5.1)
[2024-10-09] MEDS ORDERED: HYDROCHLOROTHIA25 M1 PO (18:01)
[2024-10-09] MEDS ORDERED: NORVASC5 MG PO (18:01)
== END 2024-10-09 18:09 | disposition home or self-care (01) ==
LOC: ED 14:03
PROVIDERS: Internal Medicine
DX: I10 Essential (primary) hypertension (principal); R42 Dizziness and giddiness; Z88.0 Allergy status to penicillin; Z79.899 Other long term (current) drug therapy; Z87.891 Personal history of nicotine dependence; Z91.199 Patient's noncompliance with other medical treatment and regimen due to unspecified reason

== ENCOUNTER → 2024-10-21 | Outpatient (CLI) | payer OTHER ==
[~2024-10-21] MED LIST changes: +NORVASC5 MG PO
== END | disposition home or self-care (01) ==
LOC: RESCLI 01:33
PROVIDERS: ATTEND Internal Medicine
DX: I10 Essential (primary) hypertension (principal); E05.00 Thyrotoxicosis with diffuse goiter without thyrotoxic crisis or storm; E55.9 Vitamin D deficiency, unspecified; E89.0 Postprocedural hypothyroidism; E78.2 Mixed hyperlipidemia; K21.9 Gastro-esophageal reflux disease without esophagitis; Z00.00 Encounter for general adult medical examination without abnormal findings; Z79.899 Other long term (current) drug therapy; Z88.0 Allergy status to penicillin; Z88.8 Allergy status to other drugs, medicaments and biological substances

== ENCOUNTER 2024-12-24 18:37 | Emergency (ER) | payer OTHER ==
[~2024-12-24] VITALS: Ht 170.1 cm; Wt 86.2 kg
[2024-12-24] MEDS ORDERED: Acetaminophen/Oxycodone 5 MG/325 MG TABLET PO ONE (18:50)
[2024-12-24] MEDS ORDERED: CLINDAMYCIN HCL 300 MG CAPSULE PO ONE (18:50)
[2024-12-24] MEDS ORDERED: CLINDAMYCIN HC300 MG PO (18:53)
== END 2024-12-24 19:00 | disposition home or self-care (01) ==
LOC: ED 18:37
DX: K02.9 Dental caries, unspecified (principal); K04.7 Periapical abscess without sinus; F17.210 Nicotine dependence, cigarettes, uncomplicated; Z88.0 Allergy status to penicillin; Z79.899 Other long term (current) drug therapy